=== PATIENT | female | born 1970 | race Caucasian/White ===

== ENCOUNTER 2018-03-28 15:56 | Outpatient (REF) | payer BC, SELFPAY ==
[2018-03-28 21:42] LABS: Cholesterol 269 mg/dL (50-200); HDL Cholesterol 66 mg/dL (40-60); LDL CHOLESTEROL 181 mg/dL (<100); Triglyceride 141 mg/dL (30-150)
== END 2018-03-28 16:16 ==
LOC: NCHCN 15:56
PROVIDERS: Referring Provider Registered Nurse; Visit Provider Registered Nurse
DX: Z00.00 Encounter for general adult medical examination without abnormal findings (principal); Z13.220 Encounter for screening for lipoid disorders
CPT/HCPCS: 80061; 83721

== ENCOUNTER 2020-05-03 18:12 | Outpatient (REF) | payer BC, SELFPAY ==
[2020-05-06 02:42] LABS: SARS-CoV-2 RNA Undetected (Undetected); SARS-CoV-2 Specimen Source Nasal
== END 2020-05-03 18:32 ==
LOC: NCHCN 18:12
PROVIDERS: PCP Nurse Practitioner Community Health; Visit Provider Nurse Practitioner Community Health
DX: Z20.828 Contact with and (suspected) exposure to other viral communicable diseases (principal)
CPT/HCPCS: U0003

== ENCOUNTER 2020-12-23 14:13 | Emergency (ER) | payer BC, SELFPAY ==
[2020-12-23 14:22] VITALS: BP 126/65; PULSE 74; RESP 16; TEMP 36.8; O2SAT 98
--- NOTE | 2020-12-23 14:30 | DI.RAD_ITS ---
Exam(s) XR THUMB RT EXAM: XR THUMB RT CLINICAL HISTORY: swelling at mcp. TECHNIQUE: 2D digital imaging was performed. COMPARISON: No exams were available for comparison FINDINGS: BONES: No acute fracture is present. No bony destructive lesion is seen. JOINTS: No dislocation present. SOFT TISSUE: Normal. IMPRESSION: No evidence of acute fracture, dislocation, or subluxation. DATA REPOSITORY: RADIATION DOSE DELIVERED:
--- NOTE | 2020-12-23 15:05 | ED.GENADUL_ITS ---
Discharge Plan Disposition Patient Disposition: HOME Condition: Good Discharge Details Clinical Impression: Alma's thumb of right hand Primary Care Provider: Ernestina Luna ED Provider: Jeanette Thakkar Home Meds and New Rx's Prescriptions: No Action duloxetine 20 mg Capsule,Delayed Release(Dr/Ec) 20 mg PO DAILY RF: 0 Discharge Instructions Additional Instructions: Take ibuprofen and Tylenol for pain control Use your splint Follow-up with orthopedics to set up follow-up appointment Return earlier should you have new or worsening complaints Referrals: Rene Barkley MD [ [facility] STAFF PHYSICIAN] - Discharge Data Discharge Date/Time-TO BE ENTERED AT DEPARTURE: 12/23/20 15:21 Medical Decision Making X-ray does not show acute pathology however patient's exam is concerning for gamekeeper's thumb She will be placed in a thumb spica splint and referred to orthopedic She will take ibuprofen and Tylenol for pain control and return earlier should she have new or worsening pain She is discharged home neurovascularly intact with return precautions discussed Differential Diagnosis Differential Diagnosis: Fracture, gamekeeper's thumb, laceration, hematoma HPI General Mode of arrival: ambulatory . Date/Time Provider Initiated Documentation: 12/23/20 14:36 . Limitations to Documentation: no limitations . Information obtained by: patient . HPI Narrative: This 50-year-old female presents with some injury that occurred just prior to arrival. 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 She denies any additional injuries. She had initial instantaneous swelling and pain. She now has weakness. Otherwise healthy and denies chance of . Denies sensation change. Related Data Home Medications Medication Instructions Recorded Confirmed duloxetine 20 mg PO DAILY 12/23/20 12/23/20 Allergies Allergy/AdvReac Type Severity Reaction Status Date / Time Penicillins Allergy Severe Anaphylaxis Unverified 12/23/20 14:25 General Stated Complaint: Orthopedic BRIE: 4 Review of Systems Narrative: Review of systems obtained x3 aside from where indicated in HPI PFSH Social History Smoking/Tobacco Use Status: Never Smoking risk assessment performed?: Yes Drug use: Never Do you feel safe at home: Yes Do you feel safe in your relationship?: Yes Exam Const General: no acute distress Orientation: alert Extrem Other: Right thumb with swelling at MCP joint, decreased flexion, brisk capillary refill distally, no tenderness to wrist or PIP joint appreciated, no crepitus Course Vital Signs Vital signs: Vital Signs Temperature 36.8 C 12/23/20 14:22 Pulse 74 12/23/20 14:22 Respiratory Rate 16 12/23/20 14:22 Blood Pressure 126/65 12/23/20 14:22 Pulse Oximetry 98 12/23/20 14:22 Temperature 36.8 C 12/23/20 14:22 Temperature Source Temporal Artery Scan 12/23/20 14:22 Pulse 74 12/23/20 14:22 Respiratory Rate 16 12/23/20 14:22 Respiratory Effort 12/23/20 14:27 Blood Pressure 126/65 12/23/20 14:22 Blood Pressure Position Sitting 12/23/20 14:22 Pulse Oximetry 98 12/23/20 14:22 Oxygen Delivery Method Room Air 12/23/20 14:22 Oxygen Flow Rate 0 12/23/20 14:22 Pain Level 3 12/23/20 14:22
== END 2020-12-23 15:21 | disposition home or self-care (01) ==
PROVIDERS: Emergency Provider Physician Assistant; PCP Nurse Practitioner Community Health
DX: S63.641A Sprain of metacarpophalangeal joint of right thumb, initial encounter (principal); X50.1XXA Overexertion from prolonged static or awkward postures, initial encounter
CPT/HCPCS: 29125; 99283; 73140

== ENCOUNTER 2021-04-08 03:59 | Outpatient (CLI) | payer BC, SELFPAY ==
--- NOTE | 2021-04-08 09:50 | DI.MRI_ITS ---
Exam(s) MR UPPER EXTREMITY RT WO EXAM: MR UPPER EXTREMITY RT WO CLINICAL HISTORY: pain,injury,GAMEKEEPERS THUMB,S69.91XA,S53.31XA. TECHNIQUE: Multiplanar multisequence MRI was performed. COMPARISON: None. FINDINGS: BONES: There is no fracture or contusion pattern. JOINTS: There is a small effusion in the 1st MCP joint. TENDONS: Flexors: Unremarkable. Extensors: Unremarkable. MUSCLES: Unremarkable. SOFT TISSUES: There is mild edema seen in the soft tissues around the metacarpophalangeal joint. LIGAMENTS: There is hyperintense signal seen in the region of the ulnar collateral ligament. There d oes appear to be discontinuity of the ligament consistent with a tear. OTHER: IMPRESSION: Findings suspicious for tear of the ulnar collateral ligament. Edema seen in the soft tissues around the 1st MCP joint. Small joint effusion at the MCP joint. DATA REPOSITORY:
== END 2021-04-08 04:19 ==
PROVIDERS: PCP Nurse Practitioner Community Health; Visit Provider Student in an Organized Health Care Education/Training Program
DX: S53.31XA Traumatic rupture of right ulnar collateral ligament, initial encounter (principal); S69.91XA Unspecified injury of right wrist, hand and finger(s), initial encounter; M25.441 Effusion, right hand; M79.89 Other specified soft tissue disorders
CPT/HCPCS: 73218

== ENCOUNTER 2021-04-25 17:32 | Emergency (ER) | payer BC, SELFPAY ==
[2021-04-25 17:52] VITALS: BP 155/104; PULSE 87; RESP 16; TEMP 36.8; O2SAT 94
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
[2021-04-25 19:34] VITALS: BP 146/72; PULSE 72; TEMP 36.6; O2SAT 99
--- NOTE | 2021-04-25 19:45 | DI.RAD_ITS ---
Exam(s) XR LUMBAR SPINE COMPLETE EXAM: XR LUMBAR SPINE COMPLETE CLINICAL HISTORY: midline low back pain, sudden flexion of back/legs. TECHNIQUE: 2D digital imaging was performed. COMPARISON: No exams were available for comparison FINDINGS: No evidence of fracture nor listhesis. No pars defects. There is disc space narrowing noted at T11- T12 level and anterior osseous lipping evident at this level. No other significant disc space narrow ing. Facet joints unremarkable. Sacroiliac joints appear unremarkable. IMPRESSION: No significant radiographic findings in the lumbosacral spine. Disc space narrowing at T11-T12 incidentally noted. DATA REPOSITORY: RADIATION DOSE DELIVERED:
[2021-04-25] MEDS: predniSONE 20 MG TAB 60 MG PO (20:04)
[2021-04-25] MEDS: Ketorolac 30 MG/ML VIAL IVP (20:04)
--- NOTE | 2021-04-25 21:10 | DI.VRAD_ITS ---
PROCEDURE INFORMATION: Exam: XR Lumbosacral Spine Exam date and time: 04/25/2021 7:57 PM Age: 50 years old Clinical indication: Patient HX: Midline low back pain, sudden flexion of back/legs TECHNIQUE: Imaging protocol: XR of the lumbosacral spine. Views: 4 or 5 views. COMPARISON: No relevant prior studies available. FINDINGS: Bones/joints: Normal. No acute fracture. Normal alignment. Soft tissues: Unremarkable. IMPRESSION: No acute findings. Dictated and Authenticated by: Bassam Strickland MD. Ordering:AGUSTIN Paige MD
[2021-04-25 21:27] VITALS: BP 133/74; PULSE 67; RESP 18; O2SAT 100
[2021-04-25] MEDS: diazePAM 5 MG TAB PO (21:27)
== END 2021-04-25 21:32 | disposition home or self-care (01) ==
PROVIDERS: Emergency Provider Physician Assistant; PCP Nurse Practitioner Community Health
DX: S39.012A Strain of muscle, fascia and tendon of lower back, initial encounter (principal); X50.9XXA Other and unspecified overexertion or strenuous movements or postures, initial encounter
CPT/HCPCS: 96372; 99284; 72110; J1885; J7512

== ENCOUNTER 2021-07-22 19:18 | Outpatient (REF) | payer BC, SELFPAY ==
[2021-07-24 20:11] LABS: COVID-19 RT-PCR UVMMC Result Positive (Negative)
== END 2021-07-22 19:19 | disposition home or self-care (01) ==
LOC: LBN 19:18
PROVIDERS: PCP Nurse Practitioner Community Health; Visit Provider Physician Assistant Medical
DX: Z20.822 Contact with and (suspected) exposure to COVID-19 (principal); R05.8 Other specified cough
CPT/HCPCS: U0003

== ENCOUNTER 2021-07-27 01:38 | Outpatient (CLI) | payer BC, SELFPAY ==
[2021-07-27] MEDS: Normal Saline Flush 10 ML SYR IVP (08:45)
[2021-07-27] MEDS: Normal Saline 250 ML 30 ML IV (08:45)
[2021-07-27 08:55] VITALS: BP 101/72; PULSE 79; RESP 20; TEMP 36.7; O2SAT 98
[2021-07-27 09:35] VITALS: BP 108/74; PULSE 75; RESP 18; TEMP 36.4; O2SAT 98
[2021-07-27 10:33] VITALS: BP 92/55; RESP 18; TEMP 36.4; O2SAT 99
== END 2021-07-27 01:39 | disposition home or self-care (01) ==
LOC: INF 01:38
PROVIDERS: PCP Nurse Practitioner Community Health; Visit Provider Family Medicine
DX: U07.1 COVID-19 (principal)
CPT/HCPCS: 96365; Q0047

== ENCOUNTER 2022-04-10 15:12 | Outpatient (REF) | payer BC, SELFPAY ==
[2022-04-12 12:07] LABS: COVID-19 RT-PCR UVMMC Result Negative (Negative)
== END 2022-04-10 15:13 | disposition home or self-care (01) ==
LOC: LBN 15:12
PROVIDERS: PCP Nurse Practitioner Community Health; Visit Provider Nurse Practitioner Family
DX: Z20.822 Contact with and (suspected) exposure to COVID-19 (principal); J06.9 Acute upper respiratory infection, unspecified
CPT/HCPCS: U0003

== ENCOUNTER 2022-04-27 15:18 | Outpatient (REF) | payer BC, SELFPAY ==
[2022-04-27 21:05] LABS: Hemoglobin A1C 5.6 % (<5.7)
[2022-04-27 21:11] LABS: Calculated LDL 152 mg/dL (<100); Cholesterol 241 mg/dL (<200); HDL Cholesterol 68 mg/dL (40-60); TSH (W/Ref FT4) 2.49 uIU/mL (0.36-3.74); Triglyceride 107 mg/dL (<150)
[2022-04-27 21:25] LABS: Vitamin D 25 Total 20.1 ng/mL (30-100)
[2022-05-01 11:10] LABS: Hepatitis C Ab w Rflx HCV PCR Negative (Negative)
[2022-05-01 11:27] LABS: HIV-1/2 Ag & Ab Screen Negative (Negative)
== END 2022-04-27 15:19 | disposition home or self-care (01) ==
LOC: NCHCN 15:18
PROVIDERS: PCP Nurse Practitioner Community Health; Visit Provider Nurse Practitioner Family
DX: R53.83 Other fatigue (principal); Z11.4 Encounter for screening for human immunodeficiency virus [HIV]; Z11.59 Encounter for screening for other viral diseases
CPT/HCPCS: 80061; 82306; 86803; 87389; 83036; 84443

== ENCOUNTER 2022-05-03 09:15 | Emergency (ER) | payer BC, SELFPAY ==
[2022-05-03] VITALS (14 sets, daily range): BP systolic 100–112; BP diastolic 51–63; PULSE 60–86; RESP 7–20; TEMP 36.3; O2SAT 95–100
--- NOTE | 2022-05-03 09:15 | RT.EKG_ITS ---
APPROVED REPORT Exam: Resting ECG Reason for Exam: sob,chest tightness Patient Location: E HR:72 bpm ECG Measurements Heart Rate 72 AXIS UT 193 P 54 QRSd 97 QRS -17 QT 404 T 31 QTc 442 Conclusion Sinus rhythm...normal P axis, V-rate 60- 99
--- NOTE | 2022-05-03 09:30 | DI.CT_ITS ---
Exam(s) CT CHEST PE CTA EXAM: CT CHEST PE CTA CLINICAL HISTORY: sob, hx of vasculitis. TECHNIQUE: Imaging Protocol: CT angiography of the chest was performed using pulmonary embolus josué col. Multi planar reconstructions were performed. CONTRAST MATERIAL: Intravenous: Omnipaque 350 Contrast volume: 100 cc COMPARISON: No exams were available for comparison FINDINGS: CHEST: PULMONARY ARTERIES: There are no intraluminal filling defects to suggest acute pulmonary emboli. LUNGS: There are no infiltrates nor evidence of pulmonary infarction.. There are no pleural effusions . However, there are a few small noncalcified nodules in the right lung, measuring 6 and 7 millimete rs. Another mother's 4 millimeters. These are in the right middle lobe. There do not appear to be nodules in the right lower lobe nor in the left lung. No pleural effusions. No significant focal fi ndings in the trachea and mainstem bronchi. MEDIASTINUM: There is no hilar nor mediastinal adenopathy. CARDIAC: Heart size is upper normal. There is no pericardial effusion.Caliber of the thoracic aorta is within normal limits. No dissection. There is no significant shift of the interventricular septum . PARTIALLY VISUALIZED UPPERMOST ABDOMEN: Previous cholecystectomy. OSSEOUS: No significant osseous lesions.. IMPRESSION: 1. No evidence of acute pulmonary emboli. No evidence of pulmonary infarction.No pleural effusions. 2. Three small sub cm nodules noted in the right lung as described above. Six-month follow-up CT sca n recommended. No focal left lung findings evident. 3. No intrathoracic adenopathy evident. RADIATION DOSE DELIVERED: 414.93mGy.cm Total DLP DATA REPOSITORY: All CT scans at this facility are submitted to the National Radiology Data Registry (NRDR) Dose Index Registry (DIR) with the [employer] ([employer]). RADIATION OPTIMIZATION: All CT scans at this facility use at least one of these dose optimization te chniques: automated exposure control; mA and/or kV adjustment per patient size (includes targeted exa ms where dose is matched to clinical indication); or iterative reconstruction.
[2022-05-03 09:58] LABS: Source Nasal/Nares
[2022-05-03 10:00] LABS: Abs Immature Grans 0.02 10^3/uL (0.0-0.06); Absolute Basophil Count 0.04 10^3/uL (0.0-0.2); Absolute Eosinophil Count 0.45 10^3/uL (0.0-0.7); Absolute Monocyte Count 0.54 10^3/uL (0.1-0.8); Absolute Neutrophil Count 4.97 10^3/uL (1.2-6.7); Basophils % 0.5; Eosinophils % 5.6; HCT 42.5 % (36.0-46.0); HGB 14.1 g/dL (11.2-15.7); Immature Grans % 0.2; Lymphocytes % 24.9; MCH 29.1 pg (27.0-33.0); MCHC 33.2 % (32.0-36.0); MCV 88 fL (80-95); MPV 10.6 fL (8.0-11.0); Monocytes % 6.7; Neutrophils % 62.1; Platelet Count 203 10^3/uL (130-400); RBC 4.84 10^6/uL (3.93-5.22); RDW 13.1 % (11.7-14.6); RDW-SD 42.2 fL; WBC 8.02 10^3/uL (4.4-10.8)
--- NOTE | 2022-05-03 10:01 | ED.GENADUL_ITS ---
Discharge Plan Disposition Patient Disposition: HOME Condition: Stable Discharge Details Clinical Impression: COVID, Pulmonary nodule Primary Care Provider: Ernestina Luna ED Provider: Jose Li Home Meds and New Rx's Prescriptions: Continued Claritin-D 12 Hour 5-120 mg tablet extended release 12 hr 1 tab PO Q12H duloxetine 20 mg Capsule,Delayed Release(Dr/Ec) 20 mg PO DAILY methocarbamol 500 mg tablet 500 mg PO Q6H PRN (Reason: muscle spasm) Qty: 14 0RF prednisone 20 mg tablet See Rx Instructions .ROUTE .COMPLEX Qty: 18 0RF Rx Instructions: Take 3 tabs daily for 3 days, then 2 tabs daily for 3 days, then 1 tab daily for 3 days. Discharge Instructions Instructions: COVID-19 (Coronavirus Disease 2019) (ED), Pulmonary Nodules (ED) Additional Instructions: Paxlovid as directed. Rest, [id number] medications as directed for symptomatic control. Please watch for new or worsening symptoms and return to the ER for any concerns. Please contact both your PCP and rheumatology team to discuss your ER visit, ongoing symptoms, and need for outpatient reevaluation. CT imaging did reveal incidental pulmonary nodules, radiology recommends 6-month outpatient CT follow-up for further evaluation. Medical Decision Making 51-year-old female with past medical history of vasculitis, fibromyalgia, reporting chest tightness, shortness of breath over the past 4 weeks, initially diagnosed with a viral syndrome, tested negative for COVID then. Reports symptoms have worsened over the past several days. No fever, chest pain, cough, pain or swelling her legs. Clinically she appears well, nontoxic. We will initiate a cardiac work-up including a 1 troponin and EKG given the duration of her symptoms, and will obtain CTA of the chest at the request of rheumatology at [facility]. Initial laboratory values are unremarkable. No evidence of leukocytosis, D- dimer unremarkable, normal electrolytes, creatinine 1.0 with a GFR of 68.63 magnesium 1.9 troponin less than 50 BNP 35 COVID-positive, certainly explains her symptoms. CTA reveals no PE. Incidental nodules O2 sat 99% on room air. I have reached out to rheumatology at [facility] at 1232, Dr. Garcia, we reviewed the case, CT imaging, medication list, etc. She recommends initiating Paxlovid. Discussed work-up and treatment with patient. She is agreeable to initiating Paxlovid, first dose given here Standard discharge and return precautions were provided. Patient understands, is agreeable to this plan, and has no additional questions or concerns upon discharge. This documentation was generated using Game[employer] system, please disregard any oddities of phrase or misspellings. Medical Records Medical records reviewed: Yes I reviewed the patient's medical records. Imaging Data Radiologic Study: Attestation: I personally reviewed and interpreted this imaging study as follows: Imaging: CT Scan Radiologist's impression: Exam(s) CT CHEST PE CTA EXAM: CT CHEST PE CTA CLINICAL HISTORY: sob, hx of vasculitis. TECHNIQUE: Imaging Protocol: CT angiography of the chest was performed using pulmonary embolus protocol. Multi planar reconstructions were performed. CONTRAST MATERIAL: Intravenous: Omnipaque 350 Contrast volume: 100 cc COMPARISON: No exams were available for comparison FINDINGS: CHEST: PULMONARY ARTERIES: There are no intraluminal filling defects to suggest acute pulmonary emboli. LUNGS: There are no infiltrates nor evidence of pulmonary infarction.. There are no pleural effusions. However, there are a few small noncalcified nodules in the right lung, measuring 6 and 7 millimeters. Another mother's 4 millimeters. These are in the right middle lobe. There do not appear to be nodules in the right lower lobe nor in the left lung. No pleural effusions. No significant focal findings in the trachea and mainstem bronchi. MEDIASTINUM: There is no hilar nor mediastinal adenopathy. CARDIAC: Heart size is upper normal. There is no pericardial effusion.Caliber of the thoracic aorta is within normal limits. No dissection. There is no significant shift of the interventricular septum. PARTIALLY VISUALIZED UPPERMOST ABDOMEN: Previous cholecystectomy. OSSEOUS: No significant osseous lesions.. IMPRESSION: 1. No evidence of acute pulmonary emboli. No evidence of pulmonary infarction.No pleural effusions. 2. Three small sub cm nodules noted in the right lung as described above. Six- month follow-up CT scan recommended. No focal left lung findings evident. 3. No intrathoracic adenopathy evident. Lab Data Lab results reviewed: Yes I reviewed the patient's lab results. Labs: Laboratory Tests Range/Units 05/03/22 05/03/22 05/03/22 09:50 09:50 09:50 WBC (4.4-10.8) 10^3/uL 8.02 RBC (3.93-5.22) 10^6/uL 4.84 Hgb (11.2-15.7) g/dL 14.1 Hct (36.0-46.0) % 42.5 MCV (80-95) fL 88 MCH (27.0-33.0) pg 29.1 MCHC (32.0-36.0) % 33.2 RDW (11.7-14.6) % 13.1 Plt Count (130-400) 10^3/uL 203 MPV (8.0-11.0) fL 10.6 Immature Gran % 0.2 Neutrophils % 62.1 Lymphocytes % 24.9 Monocytes % 6.7 Eosinophils % 5.6 Basophils % 0.5 Nucleated RBC % (0.0-0.3) % 0.0 Absolute Neutrophils (1.2-6.7) 10^3/uL 4.97 Absolute Lymphocytes (1.2-3.4) 10^3/uL 2.00 Absolute Monocytes (0.1-0.8) 10^3/uL 0.54 Absolute Eosinophils (0.0-0.7) 10^3/uL 0.45 Absolute Basophils (0.0-0.2) 10^3/uL 0.04 D-Dimer (<500) ng/mlFEU 459 Sodium (136-145) mmol/L 139 Potassium (3.5-5.1) mmol/L 4.0 Chloride (98-107) mmol/L 105 Carbon Dioxide (21.0-32.0) mmol/L 26.9 Anion Gap (3-11) mmol/L 7.1 BUN (7-18) mg/dL 12 Creatinine (0.55-1.02) mg/dL 1.0 Est GFR (CKD-EPI 2020) (mL/min/1.73m2) 68.63 Glucose (74-106) mg/dL 97 Calcium (8.5-10.1) mg/dL 9.1 Magnesium (1.8-2.4) mg/dL 1.9 Total Bilirubin (0.2-1.0) mg/dL 0.6 AST (15-37) U/L 10 L ALT (14-59) U/L 18 Alkaline Phosphatase (46-116) U/L 93 Troponin I (<or=60) ng/L < 50 NT-Pro-B Natriuret Pep (<300) pg/mL 35 Total Protein (6.4-8.2) g/dL 7.9 Albumin (3.4-5.0) g/dL 3.6 COVID-19 Source SARS-CoV-2 (PCR) (Negative) Range/Units 05/03/22 09:52 WBC (4.4-10.8) 10^3/uL RBC (3.93-5.22) 10^6/uL Hgb (11.2-15.7) g/dL Hct (36.0-46.0) % MCV (80-95) fL MCH (27.0-33.0) pg MCHC (32.0-36.0) % RDW (11.7-14.6) % Plt Count (130-400) 10^3/uL MPV (8.0-11.0) fL Immature Gran % Neutrophils % Lymphocytes % Monocytes % Eosinophils % Basophils % Nucleated RBC % (0.0-0.3) % Absolute Neutrophils (1.2-6.7) 10^3/uL Absolute Lymphocytes (1.2-3.4) 10^3/uL Absolute Monocytes (0.1-0.8) 10^3/uL Absolute Eosinophils (0.0-0.7) 10^3/uL Absolute Basophils (0.0-0.2) 10^3/uL D-Dimer (<500) ng/mlFEU Sodium (136-145) mmol/L Potassium (3.5-5.1) mmol/L Chloride (98-107) mmol/L Carbon Dioxide (21.0-32.0) mmol/L Anion Gap (3-11) mmol/L BUN (7-18) mg/dL Creatinine (0.55-1.02) mg/dL Est GFR (CKD-EPI 2020) (mL/min/1.73m2) Glucose (74-106) mg/dL Calcium (8.5-10.1) mg/dL Magnesium (1.8-2.4) mg/dL Total Bilirubin (0.2-1.0) mg/dL AST (15-37) U/L ALT (14-59) U/L Alkaline Phosphatase (46-116) U/L Troponin I (<or=60) ng/L NT-Pro-B Natriuret Pep (<300) pg/mL Total Protein (6.4-8.2) g/dL Albumin (3.4-5.0) g/dL COVID-19 Source Nasal/Nares SARS-CoV-2 (PCR) (Negative) POSITIVE A* ECG Data Attestation: I personally reviewed and interpreted this ECG (s) as follows: Interpretation: Sinus rhythm, ventricular rate of 72, no STEMI. HPI General Mode of arrival: ambulatory . Date/Time Provider Initiated Documentation: 05/03/22 09:16 . Limitations to Documentation: no limitations . Information obtained by: patient . 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 She denies recent illness or trauma, fever, chest pain, cough, radiation of any pain into her back, down her arms, into her neck, into her abdomen, nausea, vomiting, pain or swelling her lower extremities. Spoke with her rheumatology team today and sent to the ER for CTA rule out PE. Patient reports she has been taking her medications as directed. Related Data Home Medications Medication Instructions Recorded Confirmed duloxetine 20 mg capsule,delayed 20 mg PO DAILY 12/23/20 05/03/22 release loratadine 5 mg-pseudoephedrine ER 1 tab PO Q12H 02/03/21 05/03/22 120 mg tablet,extended release,12hr (Claritin-D 12 Hour) methocarbamol 500 mg tablet 500 mg PO Q6H PRN muscle spasm #14 04/25/21 05/03/22 tabs prednisone 20 mg tablet See Rx Instructions .Route 04/25/21 05/03/22 .COMPLEX #18 tabs Previous Rx's Medication Instructions Recorded methocarbamol 500 mg tablet 500 mg PO Q6H PRN muscle spasm #14 04/25/21 tabs prednisone 20 mg tablet See Rx Instructions .Route 04/25/21 .COMPLEX #18 tabs Allergies Allergy/AdvReac Type Severity Reaction Status Date / Time Penicillins Allergy Severe Anaphylaxis Unverified 05/03/22 09:32 General Stated Complaint: SOB BRIE: 3 Review of Systems Constitutional Constitutional: Denies fatigue, Denies fever(s), Denies headache(s) and Denies weakness ENT Ears, Nose, Mouth, and Throat: Denies headache(s) and Denies neck pain Cardiovascular Cardiovascular: Denies chest pain and Reports dyspnea Respiratory Respiratory: Denies cough and Reports dyspnea Gastrointestinal Gastrointestinal: Denies abdominal pain, Denies nausea and Denies vomiting Musculoskeletal Musculoskeletal: Denies back pain and Denies neck pain Integumentary/Breasts Skin/Breast: Denies rash Neurologic Neurologic: Denies headache(s) and Denies weakness Endocrine Endocrine: Denies fatigue Hematologic/Lymphatic Hematologic/Lymphatic: Denies easy bleeding and Denies easy bruising PFSH All Active Problems (Updated 05/03/22 @ 13:05 by VALARIE Quijano) COVID (Acute) Pulmonary nodule (Acute) Acute lumbar myofascial strain (Acute) Injury of right thumb (Acute) Questionable RCL injury Gamekeeper's thumb of right hand (Acute) Surgical History History of hysterectomy Social History Smoking/Tobacco Use Status: Never Smoking risk assessment performed?: Yes Alcohol Intake: never Drug use: Never Substance use type: does not use Current gender identity: female Do you feel safe at home: Yes Do you feel safe in your relationship?: Yes Exam Const General: cooperative, healthy appearing, comfortable and no acute distress Orientation: alert and awake HENMT Head: normal to inspection, normocephalic and atraumatic Mouth: moist mucous membranes Eyes General: appearance normal, both eyes and all related structures Conjunctivae: conjunctivae normal Neck Neck: normal visual inspection, full ROM, no meningeal signs, trachea midline and supple Resp Effort & Inspection: normal respiratory effort and able to speak in complete sentences Auscultation: clear to auscultation bilaterally Cardio Rate: regular rate Rhythm: regular rhythm GI Palpation: soft, not firm, no guarding, no pulsatile masses and nontender Back/Spine/Pelvis Back: No back tenderness Skin General skin exam: no rashes or lesions noted Neuro General: patient alert, patient awake, moves all extremities and no focal motor deficits Cognition: normal cognition Speech: speech normal Gait: normal gait Sensory Exam: no sensory deficits noted Extrem General: normal to inspection, full ROM, capillary refill normal, no pedal edema and no calf tenderness Psych Appearance: grossly normal Mental Status: mental status grossly normal Course Vital Signs Vital signs: Vital Signs Temperature 36.3 C L 05/03/22 09:20 Pulse 86 05/03/22 09:20 Respiratory Rate 20 05/03/22 09:20 Blood Pressure 112/57 L 05/03/22 09:20 Pulse Oximetry 99 05/03/22 09:20 Temperature 36.3 C L 05/03/22 09:20 Temperature Source Temporal Artery Scan 05/03/22 09:20 Pulse 86 05/03/22 09:20 Respiratory Rate 20 05/03/22 09:28 Respiratory Effort Labored 05/03/22 09:28 Respiratory Depth Normal 05/03/22 09:28 Respiratory Pattern Normal 05/03/22 09:28 Blood Pressure 112/57 L 05/03/22 09:20 Blood Pressure Position Sitting 05/03/22 09:20 Pulse Oximetry 99 05/03/22 09:20 Oxygen Delivery Method Room Air 05/03/22 09:20 Oxygen Flow Rate 0 05/03/22 09:20 Pain Level 6 05/03/22 09:20 Lab/Test Results Lab/Test Results: Laboratory Tests Range/Units 05/03/22 09:52 COVID-19 Source Nasal/Nares
[2022-05-03 10:31] LABS: ALT 18 U/L (14-59); AST 10 U/L (15-37); Albumin 3.6 g/dL (3.4-5.0); Alkaline Phosphatase 93 U/L (46-116); Anion Gap 7.1 mmol/L (3-11); BUN 12 mg/dL (7-18); Bilirubin, Total 0.6 mg/dL (0.2-1.0); CO2 26.9 mmol/L (21.0-32.0); Calcium 9.1 mg/dL (8.5-10.1); Chloride 105 mmol/L (98-107); Estimated GFR 68.63 (mL/min/1.73m2); Glucose 97 mg/dL (74-106); Magnesium 1.9 mg/dL (1.8-2.4); NT-proBNP 35 pg/mL (<300); Sodium 139 mmol/L (136-145); Total Protein 7.9 g/dL (6.4-8.2); Troponin I < 50 ng/L (<or=60)
[2022-05-03 10:33] LABS: D-Dimer 459 ng/mlFEU (<500)
[2022-05-03 10:35] LABS: COVID-19 PCR POSITIVE (Negative)
[2022-05-03] MEDS: Normal Saline Flush 10 ML SYR IVP (10:58)
[2022-05-03] MEDS: Omnipaque 350 MG/ML 500 ML BTL-Imaging package IJ (10:59)
== END 2022-05-03 13:20 | disposition home or self-care (01) ==
PROVIDERS: Emergency Provider Physician Assistant; PCP Nurse Practitioner Community Health
DX: U07.1 COVID-19 (principal); R91.1 Solitary pulmonary nodule
CPT/HCPCS: 36415; 71275; 80053; 87635; 93005; 99285; 83735; 83880; 84484; 85025; 85379; 93010; 99284

== ENCOUNTER 2022-07-24 16:11 | Outpatient (REF) | payer BC, SELFPAY ==
[2022-07-24 20:59] LABS: Anion Gap 4.3 mmol/L (3-11); BUN 14 mg/dL (7-18); CO2 30.7 mmol/L (21.0-32.0); CREATININE 0.9 mg/dL (0.55-1.02); Calcium 9.3 mg/dL (8.5-10.1); Chloride 104 mmol/L (98-107); Estimated GFR 77.88 (mL/min/1.73m2); Glucose 95 mg/dL (74-106); Potassium 4.2 mmol/L (3.5-5.1); Sodium 139 mmol/L (136-145)
[2022-07-24 21:44] LABS: Vitamin D 25 Total 38.7 ng/mL (30-100)
== END 2022-07-24 16:12 | disposition home or self-care (01) ==
LOC: NCHCN 16:11
PROVIDERS: PCP Nurse Practitioner Community Health; Visit Provider Nurse Practitioner Family
DX: E66.01 Morbid (severe) obesity due to excess calories (principal); E55.9 Vitamin D deficiency, unspecified
CPT/HCPCS: 80048; 82306

== ENCOUNTER → 2023-04-13 02:21 | Outpatient (CLI) | payer BC, SELFPAY ==
--- NOTE | 2023-04-13 15:55 | DI.RAD_ITS ---
Exam(s) XR HIP RT COMPLETE AP PELVIS EXAM: XR HIP RT COMPLETE AP PELVIS CLINICAL HISTORY: RT HIP PAIN, M25.551. TECHNIQUE: 2D digital imaging was performed of the right hip. Two images were obtained. AP pelvis a nd lateral right hip views were obtained. COMPARISON: No exams were available for comparison FINDINGS: BONES: No acute fracture is present. No bony destructive lesion is seen. JOINTS: No dislocation present. There is mild narrowing of the joint space of the right hip. The lef t hip is well maintained as are the sacroiliac joints and symphysis pubis. SOFT TISSUE: Normal. IMPRESSION: Mild right hip joint space narrowing. DATA REPOSITORY: RADIATION DOSE DELIVERED:
== END ==
PROVIDERS: Visit Provider Family Medicine
DX: M16.11 Unilateral primary osteoarthritis, right hip (principal)
CPT/HCPCS: 73502

== ENCOUNTER 2024-04-28 08:32 | Emergency (ER) | payer BC, SELFPAY ==
[2024-04-28] VITALS (20 sets, daily range): BP systolic 124–162; BP diastolic 48–91; PULSE 63–77; RESP 10–31; TEMP 36.1; O2SAT 91–100
--- NOTE | 2024-04-28 08:30 | RT.EKG_ITS ---
APPROVED REPORT Exam: Resting ECG Reason for Exam: Chest Pain Patient Location: E HR:75 bpm ECG Measurements Heart Rate 75 AXIS ME 209 P 66 QRSd 95 QRS 3 QT 386 T 63 QTc 433 Conclusion Sinus rhythm 75 normal axis no stemi
[2024-04-28] MEDS: Aspirin 81 MG CHEW 324 MG CH (08:54)
[2024-04-28] MEDS: ALPRAZolam 0.5 MG TAB PO (08:54)
[2024-04-28] MEDS: Normal Saline Flush 10 ML SYR IVP (08:54)
--- NOTE | 2024-04-28 09:08 | ED.GENADUL_ITS ---
Discharge Plan Disposition Patient Disposition: Home Condition: Stable Discharge Details Clinical Impression: Chest pain Primary Care Provider: Unknown,Unknown ED Provider: Lore Dumont Home Meds and New Rx's Prescriptions: No Action Claritin-D 12 Hour 5-120 mg tablet extended release 12 hr 1 tab PO Q12H duloxetine 20 mg Capsule,Delayed Release(Dr/Ec) 20 mg PO DAILY methocarbamol 500 mg tablet 500 mg PO Q6H PRN (Reason: muscle spasm) Qty: 14 0RF prednisone 20 mg tablet See Rx Instructions .ROUTE .COMPLEX Qty: 18 0RF Rx Instructions: Take 3 tabs daily for 3 days, then 2 tabs daily for 3 days, then 1 tab daily for 3 days. duloxetine 30 mg capsule,delayed release(DR/EC) 30 mg PO DAILY Patient Comments: TAKE ONE CAPSULE BY MOUTH EVERY DAY Discharge Instructions Instructions: Chest pain Additional Instructions: LAB WORK IS REASSURING TODAY PLEASE FOLLOW UP WITH YOUR PCP WITH ANY ONGOING SYMPTOMS HPI General Date/Time Provider Initiated Documentation: 04/28/24 08:47 . Limitations to Documentation: no limitations . Information obtained by: patient . HPI Narrative: 53-year-old female with out significant past medical history presents for evaluation of chest pain. She reports that has been ongoing intermittently for the last week. No exacerbating or relieving factors. She reports that the pain is localized over the left side of her chest and radiates up into her left shoulder and left neck. She reports that both arms feel heavy when she is feeling this pain. It is not associated with shortness of breath, nausea or sweating. She states that home is very stressful right now as she just asked her for divorce. She has never had pain like this before. Denies any cough, fever or chills Related Data Home Medications ?Medication ?Instructions ?Recorded ?Confirmed duloxetine 20 mg capsule,delayed 20 mg PO DAILY 12/23/20 04/28/24 release loratadine 5 mg-pseudoephedrine ER 1 tab PO Q12H 02/03/21 04/28/24 120 mg tablet,extended release,12hr (Claritin-D 12 Hour) methocarbamol 500 mg tablet 500 mg PO Q6H PRN muscle spasm #14 04/25/21 04/28/24 tabs prednisone 20 mg tablet See Rx Instructions .Route 04/25/21 04/28/24 .COMPLEX #18 tabs duloxetine 30 mg capsule,delayed 30 mg PO DAILY 04/28/24 04/28/24 release Previous Rx's ?Medication ?Instructions ?Recorded methocarbamol 500 mg tablet 500 mg PO Q6H PRN muscle spasm #14 04/25/21 tabs prednisone 20 mg tablet See Rx Instructions .Route 04/25/21 .COMPLEX #18 tabs Allergies Allergy/AdvReac Type Severity Reaction Status Date / Time Penicillins Allergy Severe Anaphylaxis Unverified 04/28/24 08:45 General Stated Complaint: Chest Pain BRIE: 3 Exam Narrative Exam Narrative: Review of Systems: All systems reviewed & are unremarkable except as noted in HPI and below Well-developed, crying NCAT RRR, no murmur Unlabored respiratory effort, CTAB Nondistended abdomen , soft non tender Extremities w/o edema no focal neurologic deficits tearful, anxious, no si / hi Course Vital Signs Vital signs: Vital Signs Pulse 77 04/28/24 08:36 Respiratory Rate 20 04/28/24 08:36 Blood Pressure 162/91 H 04/28/24 08:36 Pulse Oximetry 99 04/28/24 08:36 Pulse 77 04/28/24 08:36 Respiratory Rate 15 04/28/24 08:47 Respiratory Effort Normal, Non-Labored 04/28/24 08:47 Respiratory Depth Normal 04/28/24 08:47 Respiratory Pattern Normal 04/28/24 08:47 Blood Pressure 162/91 H 04/28/24 08:36 Blood Pressure Position Supine 04/28/24 08:36 Pulse Oximetry 99 04/28/24 08:36 Oxygen Delivery Method Room Air 04/28/24 08:36 Oxygen Flow Rate 0 04/28/24 08:36 Pain Level 4 04/28/24 08:47 Medical Decision Making Emergent evaluation of chest pain. Symptoms have been ongoing for over a week. EKG reviewed and independently interpreted: Sinus 75 normal axis normal inter vals no STEMI. The patient has no known risk factors for coronary disease. I have a low suspicion for ACS. Unlikely to be pneumonia given lack of sick symptoms, unlikely dissection or other aortic pathology. She is undergoing a very stressful time in her home life and is very tearful and upset about that currently. Will give a dose of Xanax to help with this. Will check lab work and reassess. Lab work reviewed, no clinically significant abnormalities. Chest x-ray reviewed and independently interpreted: No focal consolidation, normal heart size, no pulmonary edema or pleural effusion. Given a troponin less than 4 and a patient has been having pain symptoms for a week, I have a low suspicion for cardiac etiology. At this time I feel she is stable for discharge home. She was given a dose of Xanax and that seemed to be most helpful. Recommend following up with her PCP for further evaluation of any ongoing symptoms. Quality:SDOH Health Related Social Needs: No Data to Display PFSH All Active Problems (Updated 04/28/24 @ 10:06 by Lore Dumont MD) Chest pain (Acute) COVID (Acute) Acute lumbar myofascial strain (Acute) Injury of right thumb (Acute) Questionable RCL injury Gamekeeper's thumb of right hand (Acute) Surgical History History of hysterectomy Social History Smoking/Tobacco Use Status: Never Smoking risk assessment performed?: Yes Alcohol Intake: never Drug use: Never Substance use type: does not use Current gender identity: female Do you feel safe at home: Yes Do you feel safe in your relationship?: Yes
[2024-04-28 09:15] LABS: Abs Immature Grans 0.02 10^3/uL (0.0-0.06); Absolute Basophil Count 0.04 10^3/uL (0.0-0.2); Absolute Eosinophil Count 0.44 10^3/uL (0.0-0.7); Absolute Lymphocyte Count 1.84 10^3/uL (1.2-3.4); Absolute Neutrophil Count 4.57 10^3/uL (1.2-6.7); Basophils % 0.5 %; HCT 41.4 % (36.0-46.0); HGB 13.6 g/dL (11.2-15.7); Immature Grans % 0.3 %; Lymphocytes % 25.2 %; MCH 29.2 pg (27.0-33.0); MCHC 32.9 % (32.0-36.0); MCV 89 fL (80-95); MPV 10.1 fL (8.0-11.0); Monocytes % 5.5 %; Neutrophils % 62.5 %; Platelet Count 218 10^3/uL (130-400); RBC 4.66 10^6/uL (3.93-5.22); RDW 14.1 % (11.7-14.6); RDW-SD 45.6 fL; WBC 7.31 10^3/uL (4.4-10.8)
[2024-04-28 09:38] LABS: ALT 22 U/L (14-59); AST 12 U/L (15-37); Albumin 3.5 g/dL (3.4-5.0); Alkaline Phosphatase 97 U/L (46-116); Anion Gap 9.9 mmol/L (3-11); BUN 19 mg/dL (7-18); Bilirubin, Total 0.41 mg/dL (0.2-1.0); CO2 26.1 mmol/L (21.0-32.0); Chloride 105 mmol/L (98-107); Estimated GFR 67.78 (mL/min/1.73m2); Glucose 90 mg/dL (74-106); Magnesium 1.8 mg/dL (1.8-2.4); Potassium 3.9 mmol/L (3.5-5.1); Sodium 141 mmol/L (136-145); Total Protein 7.9 g/dL (6.4-8.2)
--- NOTE | 2024-04-28 09:39 | DI.RAD_ITS ---
Exam(s) XR PORTABLE CHEST AP EXAM: XR PORTABLE CHEST AP CLINICAL HISTORY: chest pain TECHNIQUE: 2D digital imaging was performed of the chest. One image was obtained. An AP view was ob tained. COMPARISON: CT CT CHEST PE CTA from 05/03/[address] CHEST WO from 11/08/2022 FINDINGS: MEDIASTINUM: Normal. HEART: Normal. PULMONARY VASCULATURE: Normal. LUNGS: Clear. PLEURAL SPACE: No pleural effusion or pneumothorax. BONE:Within normal limits for the patient's age. OTHER FINDINGS:Normal. IMPRESSION: No acute pulmonary findings. DATA REPOSITORY: RADIATION DOSE DELIVERED:
[2024-04-28 09:40] LABS: Troponin I < 4 ng/L (<or=51)
== END 2024-04-28 10:30 | disposition home or self-care (01) ==
LOC: ER 11:00
PROVIDERS: Emergency Provider Emergency Medicine
DX: R07.9 Chest pain, unspecified (principal)
CPT/HCPCS: 36415; 80053; 93005; 99285; 71045; 83735; 84484; 85025; 93010; 99284

== ENCOUNTER 2024-11-01 22:05 | Emergency (ER) | payer BC, SELFPAY ==
[2024-11-01 22:23] VITALS: BP 114/57; PULSE 87; RESP 20; TEMP 35.9; O2SAT 99
[2024-11-01] MEDS: Acetaminophen 500 MG TAB 1000 MG PO (22:51)
[2024-11-01] MEDS: Dexamethasone 10 MG/ML VIAL 12 MG IM (22:51)
[2024-11-01] MEDS: Ketorolac 30 MG/ML VIAL IM (22:52)
[2024-11-01 23:07] LABS: Mono Screening Negative (Negative)
--- NOTE | 2024-11-01 23:28 | ED.GENADUL_ITS ---
Discharge Plan Disposition Patient Disposition: Home Condition: Good Discharge Details Clinical Impression: Laryngitis Primary Care Provider: Unknown,Unknown ED Provider: Miller Wells Home Meds and New Rx's Prescriptions: No Action Claritin-D 12 Hour 5-120 mg tablet extended release 12 hr 1 tab PO Q12H duloxetine 20 mg Capsule,Delayed Release(Dr/Ec) 20 mg PO DAILY duloxetine 30 mg capsule,delayed release(DR/EC) 30 mg PO DAILY Patient Comments: TAKE ONE CAPSULE BY MOUTH EVERY DAY Discharge Instructions Instructions: Laryngitis ED Additional Instructions: At this time your strep test is negative, as to is your COVID flu and RSV test. I suspect there is a viral etiology causing your current throat pain. Please take Tylenol and Motrin for pain and swelling. You can take 1000 mg of Tylenol and 800 mg of ibuprofen every 6 hours. These are the maximum doses. Please take 2 tablespoons of honey every 4-6 hours as well to help with sore throat. If you notice any worsening of your symptoms, or any new symptoms such as difficulty swallowing, difficulty controlling your secretions, vomiting, diarrhea, fever, chills, shortness of breath, chest pain, numbness, weakness, or fainting , please return immediately to the emergency department for r eevaluation. Please follow up with your primary care provider as soon as possible for reassessment and reevaluation. As always, it was a pleasure participating in your medical care today. HPI General Date/Time Provider Initiated Documentation: 11/01/24 22:06 . HPI Narrative: 53-year-old female with a past medical history of vasculitis, fibromyalgia, who presents today for sore throat. Patient states that about a week ago she developed upper respiratory like some flulike symptoms. She had a runny nose congestion and mild cough. Symptoms actually somewhat improved and then last night/yesterday she developed notable sore throat. This is progressed over the last 24 hours, with worsening pain with swallowing, difficulty speaking because of pain, and feeling like there is some swelling in the back of her throat. She denies any current vomiting but did have some vomiting 2 to 3 days ago. She admits to notable fatigue. 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 She denies chest pain or shortness of breath. She denies headache or ear pain currently. No other complaints at this time. She also states that she has enlarged tonsils at baseline. Related Data Home Medications ?Medication ?Instructions ?Recorded ?Confirmed duloxetine 20 mg capsule,delayed 20 mg PO DAILY 12/23/20 11/01/24 release loratadine 5 mg-pseudoephedrine ER 1 tab PO Q12H 02/03/21 11/01/24 120 mg tablet,extended release,12hr (Claritin-D 12 Hour) duloxetine 30 mg capsule,delayed 30 mg PO DAILY 04/28/24 11/01/24 release Allergies Allergy/AdvReac Type Severity Reaction Status Date / Time Penicillins Allergy Severe Anaphylaxis Verified 11/01/24 22:28 General Stated Complaint: Sorethroat BRIE: 4 Exam Narrative Exam Narrative: 1.Const: Well-nourished, Well-developed, appearing stated age 2.Eyes: PERRL, no conjunctival injection, and symmetrical lids. 3.ENT: Atraumatic external nose and ears. Moist MM. Neck: Symmetric, trachea midline, No thyromegaly. No evidence of otitis media. No evidence of Ludewig's angina. She has 1 tooth with decay in the posterior left lower molar, but no evidence of periapical abscess or tract. She has tenderness over her tonsils, and exam demonstrates no evidence of peritonsillar abscess. She does have enlarged tonsils, and they look quite floppy in the inferior aspect with slight enlargement. When she just opens her mouth for posterior oropharynx evaluation her tonsils are touching in the inferior aspect, but not the superior component and the uvula is midline, however when she does perform the posterior oropharynx visualization test and says AHHHH she has complete separation of tonsils significantly and her tonsil grading appears to be around a +1. Palpation of her neck reveals no evidence of large mass otherwise. She has no stridor. She is able to control her secretions well. 4.CVS: +S1/S2, Peripheral pulses 2+ and equal in all extremities. Brisk capillary refill in all extremities. 5.RESP: Unlabored respiratory effort. Clear to auscultation bilaterally. No wheezes rales or rhonchi 6.GI: Soft, Nontender/Nondistended, No hepatosplenomegaly. No guarding or rebound. 7.MSK: Normocephalic/Atraumatic, Extremities w/o deformity or ttp No cyanosis or clubbing, Normal movement of all extremities 8.Skin: Warm, Dry. No rashes or lesions. 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 Sensation grossly intact, no focal neurologic deficits. 10.Psych: (AAO) x3. Appropriate mood and affect Course Vital Signs Vital signs: Vital Signs Temperature 35.9 C L 11/01/24 22:23 Pulse 87 11/01/24 22:23 Respiratory Rate 20 11/01/24 22:23 Blood Pressure 114/57 L 11/01/24 22:23 Pulse Oximetry 99 11/01/24 22:23 Temperature 35.9 C L 11/01/24 22:23 Pulse 87 11/01/24 22:23 Respiratory Rate 20 11/01/24 22:23 Blood Pressure 114/57 L 11/01/24 22:23 Pulse Oximetry 99 11/01/24 22:23 Oxygen Delivery Method Room Air 11/01/24 22:23 Oxygen Flow Rate 0 11/01/24 22:23 Pain Level 8 11/01/24 22:23 Lab/Test Results Lab/Test Results: Laboratory Tests Range/Units 11/01/24 22:50 Monoscreen (Negative) Negative POC Strep Test-LORRI(Rapid) Start: 11/01/24 22:33 Freq: .Rapid Strep Test Status: Active Protocol: Document 11/01/24 23:16 (Rec: 11/01/24 23:17 [id number]) Strep test-LORRI(Rapid)-POC POC-Strep test-LORRI (Rapid) Negative POC-Strep test-LORRI (Rapid) Negative Medical Decision Making 53-year-old female with a past medical history of vasculitis, f ibromyalgia, who presents today for sore throat. Patient states that about a week ago she developed upper respiratory like some flulike symptoms. She had a runny nose congestion and mild cough. Symptoms actually somewhat improved and then last night/yesterday she developed notable sore throat. This is progressed over the last 24 hours, with worsening pain with swallowing, difficulty speaking because of pain, and feeling like there is some swelling in the back of her throat. She denies any current vomiting but did have some vomiting 2 to 3 days ago. She admits to notable fatigue. 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 She denies chest pain or shortness of breath. She denies headache or ear pain currently. No other complaints at this time. She also states that she has enlarged tonsils at baseline. Physical exam demonstrates a neck that is symmetric, trachea midline, No thyromegaly. No evidence of otitis media. No evidence of Ludewig's angina. She has 1 tooth with decay in the posterior left lower molar, but no evidence of periapical abscess or tract. She has tenderness over her tonsils, and exam demonstrates no evidence of peritonsillar abscess. She does have enlarged tonsils, and they look quite floppy in the inferior aspect with slight enlargement. When she just opens her mouth for posterior oropharynx evaluation her tonsils are touching in the inferior aspect, but not the superior component and the uvula is midline, however when she does perform the posterior oropharynx visualization test and says AHHHH she has complete separation of tonsils significantly and her tonsil grading appears to be around a +1. Palpation of her neck reveals no evidence of large mass otherwise. She has no stridor. She is able to control her secretions well. No evidence to suggest Ludewig's angina, peritonsillar abscess, peritracheal abscess that she has no fever or tachycardia or signs of sepsis. No halitosis breath to suggest diverticula of the esophagus. No tripoding or hot potato voice to suggest bacterial tracheitis or epiglottitis. Symptoms are concerning for strep throat, viral pharyngitis, viral laryngitis, and mono. Will test for these, give Toradol and Tylenol, monitor closely and reassess. Will also give a dose of Decadron for the mild tonsillar swelling that is present. 12:30 AM After 2 hours of observation patient was reassessed, pain and symptoms have notably improved. She continues to demonstrate no signs of airway compromise, Ludewig's angina, or other airway concerning etiology. Diagnosis at this time is laryngitis, with mild tonsillar inflammation. Strep test, monotest, COVID, flu, and RSV testing are all negative. Will recommend continued NSAID therapy. She did receive Decadron. No indication for significant bacterial or infectious pathology otherwise. No indication for emergent imaging at this time. Discussed red flags for which to return. I have extensively reviewed the treatment plan and discharge instructions with the patient. I have addressed all patient concerns at this time. The patient was made aware of what symptoms to monitor for that would warrant a return to the emergency department. Discussed the plan with the patient, they demonstrate verbal understanding and agreement with our assessment and plan at this time. The documentation in this chart was dictated using [employer] dictation software. Please excuse any dictation errors. Quality:SDOH Health Related Social Needs: No Data to Display PFSH All Active Problems (Updated 11/02/24 @ 00:28 by Miller Wells DO) Laryngitis (Acute) COVID (Acute) Acute lumbar myofascial strain (Acute) Injury of right thumb (Acute) Questionable RCL injury Gamekeeper's thumb of right hand (Acute) Surgical History History of hysterectomy Social History Smoking/Tobacco Use Status: Never Smoking risk assessment performed?: Yes Alcohol Intake: never Drug use: Never Substance use type: does not use Current gender identity: female Do you feel safe at home: Yes Do you feel safe in your relationship?: Yes
[2024-11-01 23:47] LABS: COVID-19 PCR Negative (Negative); Influenza A PCR Negative (Negative); Influenza B PCR Negative (Negative); RSV PCR Negative (Negative)
[2024-11-01 23:48] LABS: Source Nasopharynx
[2024-11-02 00:35] VITALS: BP 110/72; PULSE 88; RESP 16; O2SAT 98
== END 2024-11-02 00:35 | disposition home or self-care (01) ==
PROVIDERS: Emergency Provider Student in an Organized Health Care Education/Training Program
DX: J04.0 Acute laryngitis (principal)
CPT/HCPCS: 87637; 87880; 96372; 99284; 86308; 99283; J1100; J1885

== ENCOUNTER 2024-11-28 15:04 | Outpatient (REF) | payer BC, SELFPAY ==
[2024-11-28 21:17] LABS: Abs Immature Grans 0.01 10^3/uL (0.0-0.06); Absolute Basophil Count 0.04 10^3/uL (0.0-0.2); Absolute Lymphocyte Count 2.26 10^3/uL (1.2-3.4); Absolute Monocyte Count 0.47 10^3/uL (0.1-0.8); Absolute Neutrophil Count 3.35 10^3/uL (1.2-6.7); Basophils % 0.6 %; Eosinophils % 11.5 %; HCT 39.6 % (36.0-46.0); HGB 12.8 g/dL (11.2-15.7); Immature Grans % 0.1 %; Lymphocytes % 32.6 %; MCH 28.8 pg (27.0-33.0); MCHC 32.3 % (32.0-36.0); MCV 89 fL (80-95); MPV 10.5 fL (8.0-11.0); Monocytes % 6.8 %; Neutrophils % 48.4 %; Platelet Count 225 10^3/uL (130-400); RBC 4.44 10^6/uL (3.93-5.22); RDW 13.5 % (11.7-14.6); RDW-SD 43.9 fL; WBC 6.93 10^3/uL (4.4-10.8)
[2024-11-28 21:40] LABS: FREE T4 0.82 ng/dL (0.76-1.46); TSH 2.06 uIU/mL (0.36-3.74)
== END 2024-11-28 15:05 | disposition home or self-care (01) ==
LOC: NCHCN 15:04
PROVIDERS: Visit Provider Family Medicine
DX: J37.0 Chronic laryngitis (principal)
CPT/HCPCS: 84439; 84443; 85025

== ENCOUNTER 2025-03-17 20:19 | Emergency (ER) | payer BC, SELFPAY ==
[2025-03-17] VITALS (25 sets, daily range): BP systolic 134–140; BP diastolic 53–112; PULSE 94–117; RESP 11–23; TEMP 37.6–38.2; O2SAT 90–100
--- NOTE | 2025-03-17 20:30 | RT.EKG_ITS ---
APPROVED REPORT Exam: Resting ECG Reason for Exam: Chest pain, N/V Patient Location: E HR:100 bpm ECG Measurements Heart Rate 100 AXIS MA 193 P 44 QRSd 94 QRS -38 QT 341 T [id number] QTc 440 Conclusion Sinus tachycardia...rate> 99 Probable left atrial enlargement...P >50mS, <-0.10mV V1 Left axis deviation...QRS axis (-30,-90) Low voltage, precordial leads...precordial leads <1.0mV No STEMI
[2025-03-17 20:41] LABS: Abs Immature Grans 0.05 10^3/uL (0.0-0.06); HCT 39.8 % (36.0-46.0); HGB 13.2 g/dL (11.2-15.7); Immature Grans % 0.5 %; MCH 28.4 pg (27.0-33.0); MCHC 33.2 % (32.0-36.0); MCV 86 fL (80-95); MPV 10.6 fL (8.0-11.0); Platelet Count 211 10^3/uL (130-400); RBC 4.64 10^6/uL (3.93-5.22); RDW 13.3 % (11.7-14.6); RDW-SD 41.5 fL; WBC 10.35 10^3/uL (4.4-10.8)
--- NOTE | 2025-03-17 20:45 | DI.CT_ITS ---
Exam(s) CT HEAD WO EXAM: CT HEAD WO CLINICAL HISTORY: Headache, Vomiting. TECHNIQUE: Imaging Protocol: Axial computed tomography images with coronal and sagittal reformatted images were created and reviewed COMPARISON: No exams were available for comparison FINDINGS: Ventricles and Extra axial spaces: Normal in size and morphology for the patient's age. Hemorrhage: None. Cerebral parenchyma: There is no evidence of an acute territorial infarct or mass effect. Midline shift: None. Brainstem/Cerebellum: Normal. Calvarium: Normal. Visualized Paranasal sinuses/Mastoids: There is mild mucosal thickening in several ethmoid air cells bilaterally. The remaining visualized paranasal sinuses and mastoid air cells are clear. Soft Tissues: Unremarkable. IMPRESSION: 1. No acute intracranial process. 2. Mild ethmoid sinus disease. 3. The preliminary [facility] report was reviewed. RADIATION DOSE DELIVERED: 791.97mGy.cm Total DLP DATA REPOSITORY: All CT scans at this facility are submitted to the National Radiology Data Registry (NRDR) Dose Index Registry (DIR) with the [employer] ([employer]). RADIATION OPTIMIZATION: All CT scans at this facility use at least one of these dose optimization techniques: automated exposure control; mA and/or kV adjustment per patient size (includes targeted exams where dose is matched to clinical indication); or iterative reconstruction.
--- NOTE | 2025-03-17 20:51 | DI.RAD_ITS ---
Exam(s) XR CHEST 2V PA LATERAL EXAM: XR CHEST 2V PA LATERAL CLINICAL HISTORY: Chest Pain, N/V TECHNIQUE: 2D digital imaging was performed of the chest. Two images were obtained. PA and lateral views were obtained. COMPARISON: CR XR PORTABLE CHEST AP from 04/28/2024 FINDINGS: MEDIASTINUM: Normal. HEART: Normal. PULMONARY VASCULATURE: Normal. LUNGS: Clear. PLEURAL SPACE: No pleural effusion or pneumothorax. BONE:Within normal limits for the patient's age. OTHER FINDINGS:Normal. IMPRESSION: 1. No acute pulmonary findings. 2. The preliminary [facility] report was reviewed. DATA REPOSITORY: RADIATION DOSE DELIVERED:
--- NOTE | 2025-03-17 20:53 | W.ED.GENAD ---
Discharge Plan Disposition Patient Disposition: Home Condition: Stable Discharge Details Clinical Impression: Sinusitis, Headache, Vomiting Primary Care Provider: Unknown,Unknown ED Provider: Yue Nicolas Home Meds and New Rx's Prescriptions: New doxycycline hyclate 100 mg capsule 100 mg PO BID 7 Days Qty: 14 0RF Rx Instructions: Take one capsule by mouth twice daily x 7 days No Action Claritin-D 12 Hour 5-120 mg tablet extended release 12 hr 1 tab PO Q12H duloxetine 20 mg Capsule,Delayed Release(Dr/Ec) 20 mg PO DAILY duloxetine 30 mg capsule,delayed release(DR/EC) 30 mg PO DAILY Patient Comments: TAKE ONE CAPSULE BY MOUTH EVERY DAY magnesium aspartate HCl PO Discharge Instructions Instructions: Headache, Adult ED, Sinusitis, Adult ED, Nausea and Vomiting, Adult ED Additional Instructions: At this time head CT shows no acute intracranial abnormality no bleeds, no evidence of stroke. However, you do have some diffuse white matter changes and some large ventricles. This could be due to blood pressure or your autoimmune disorder or could be related to your headache and symptoms. The CT also shows that you have some sinusitis. You were given antibiotics here in the department for sinus infection. Please take these as prescribed twice daily with yogurt or probiotic. Please take Tylenol or Ibuprofen with food every 4-6 hours as needed for fever, pain and swelling. Increase oral fluids. Follow up with primary care provider in 3-5 days. Return to ED sooner if any worsening headache, weakness dizziness, confusion, worsening fever, stiff neck, recurrent vomiting associated with headache or concerns. Referrals: Primary Care Provider [Outside] - 5 days Referral Note: ER follow up please call for appointment Discharge Data Discharge Date/Time-TO BE ENTERED AT DEPARTURE: 03/18/25 00:15 HPI General Mode of arrival: ambulatory. Date/Time Provider Initiated Documentation: 03/17/25 20:23. Limitations to Documentation: no limitations. Information obtained by: patient, RN notes reviewed and old records reviewed. HPI Narrative: 54-year-old female presents to the ER with chief complaint migraine which began around 1 PM today associated by brain fog, blurry vision nausea vomiting and chest pain. No vomiting. She reports that she collapsed while having this episode. Manage he Excedrin Migraine prior to arrival: 2 Benadryl tablets around 1630 p.m. She is present hypertensive, tachycardic and febrile temp 38.2. She is ANO x 4. 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 She denies any abdominal pain other than cramping prior to the emesis episodes, denies any diarrhea. She has had a previous episode like this. Related Data Home Medications ?Medication ?Instructions ?Recorded ?Confirmed duloxetine 20 mg capsule,delayed 20 mg PO DAILY 12/23/20 03/17/25 release loratadine 5 mg-pseudoephedrine ER 1 tab PO Q12H 02/03/21 03/17/25 120 mg tablet,extended release,12hr (Claritin-D 12 Hour) duloxetine 30 mg capsule,delayed 30 mg PO DAILY 04/28/24 03/17/25 release doxycycline hyclate 100 mg capsule 100 mg PO BID Sinusitis 7 days #03/17/25 caps magnesium aspartate HCl PO 03/17/25 Previous Rx's ?Medication ?Instructions ?Recorded doxycycline hyclate 100 mg capsule 100 mg PO BID Sinusitis 7 days #14 03/17/25 caps Allergies Allergy/AdvReac Type Severity Reaction Status Date / Time Penicillins Allergy Severe Anaphylaxis Verified 03/17/25 20:30 General Stated Complaint: Nausea/Vomit/Diar BRIE: 3 Review of Systems All systems reviewed & are unremarkable except as noted in HPI and below Constitutional Constitutional: Reports as per HPI and Reports headache(s) Eyes Eyes: Denies loss of vision ENT Ears, Nose, Mouth, and Throat: Reports headache(s) Cardiovascular Cardiovascular: Reports as per HPI and Reports chest pain Gastrointestinal Gastrointestinal: Reports nausea, Reports vomiting and Denies hematemesis Neurologic Neurologic: Denies abnormal speech, Reports headache(s), Denies localized weakness, Denies loss of vision, Reports other visual disturbances and Reports radicular pain Exam Narrative Exam Narrative: Constitutional: Alert and oriented x3. Appears stated age. Normal body habitus. Head: Normocephalic, no trauma. Eyes: Pupils PERRL, Red reflex noted, EOM's intact. Eyelids symmetrical without lesions, discharge, or swelling. ENT: Bilateral TM's WNL, External ear normal to inspection, no mastoid TTP, swelling, or erythema, Nasal turbinates WNL, no nasal discharge. Normal dentition, Posterior pharynx WNL, no exudate. Chest: RRR, Normal S1, S2, distal pulses intact. Resp: Lungs clear to auscultation bilaterally, no wheezes, rales, or rhonchi. Abdomen: Soft, non-distended, Normoactive bowel sounds all 4 quads. Musculoskeletal: Normal gait, Moves all 4 extremities without difficulty. Skin: No suspicious rashes or lesions. Capillary refill less than 2 sec. Neurologic: Cranial nerves II-XII intact. Alert and oriented x 3. Motor: No deficits noted. Sensory: Intact bilaterally all 4 extremities. Hematologic/Lymphatic: No ecchymosis, no lymphadenopathy. Course Vital Signs Vital signs: Vital Signs Temperature 38.2 C H 03/17/25 20:22 Pulse 106 H 03/17/25 20:22 Respiratory Rate 22 03/17/25 20:22 Blood Pressure 139/112 H 03/17/25 20:22 Pulse Oximetry 100 03/17/25 20:22 Temperature 38.2 C H 03/17/25 20:32 Temperature Source Oral 03/17/25 20:32 Pulse 106 H 03/17/25 20:32 Respiratory Rate 22 03/17/25 20:32 Blood Pressure 139/112 H 03/17/25 20:32 Blood Pressure Position Sitting 03/17/25 20:32 Pulse Oximetry 100 03/17/25 20:32 Oxygen Delivery Method Room Air 03/17/25 20:32 Oxygen Flow Rate 0 03/17/25 20:32 Pain Level 4 03/17/25 20:32 Lab/Test Results Lab/Test Results: 03/17/25 20:40 Blood Blood Culture - Pending 03/17/25 20:33 Blood Blood Culture - Pending Laboratory Tests Range/Units 03/17/25 20:38 WBC (4.4-10.8) 10^3/uL 10.35 RBC (3.93-5.22) 10^6/uL 4.64 Hgb (11.2-15.7) g/dL 13.2 Hct (36.0-46.0) % 39.8 MCV (80-95) fL 86 MCH (27.0-33.0) pg 28.4 MCHC (32.0-36.0) % 33.2 RDW (11.7-14.6) % 13.3 Plt Count (130-400) 10^3/uL 211 MPV (8.0-11.0) fL 10.6 Immature Gran % % 0.5 Neutrophils % % 82.3 Lymphocytes % % 10.1 Monocytes % % 4.4 Eosinophils % % 2.3 Basophils % % 0.4 Nucleated RBC % (0.0-0.3) % 0.0 Absolute Neutrophils (1.2-6.7) 10^3/uL 8.51 H Absolute Lymphocytes (1.2-3.4) 10^3/uL 1.05 L Absolute Monocytes (0.1-0.8) 10^3/uL 0.46 Absolute Eosinophils (0.0-0.7) 10^3/uL 0.24 Absolute Basophils (0.0-0.2) 10^3/uL 0.04 VBG Lactate (<or=2.0) mmol/L 1.3 Sodium Cancelled Potassium Cancelled Chloride Cancelled Carbon Dioxide Cancelled Anion Gap Cancelled BUN Cancelled Creatinine Cancelled Est GFR (CKD-EPI 2020) Cancelled Glucose Cancelled Calcium Cancelled Magnesium Cancelled Total Bilirubin Cancelled AST Cancelled ALT Cancelled Alkaline Phosphatase Cancelled Troponin I Cancelled Total Protein Cancelled Albumin Cancelled Medical Decision Making 54-year-old female presents to the ER with chief complaint migraine which began around 1 PM today associated by brain fog, blurry vision nausea vomiting and chest pain. No vomiting. She reports that she collapsed while having this episode. Manage he Excedrin Migraine prior to arrival: 2 Benadryl tablets around 1630 p.m. She is present hypertensive, tachycardic and febrile temp 38.2. She is ANO x 4. 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 She denies any abdominal pain other than cramping prior to the emesis episodes, denies any diarrhea. She has had a previous episode like this. Workup ordered including EKG, Lyme, CBC CMP lactate blood cultures x 2 urinalysis. Liter normal saline, Compazine and 50 mg Toradol. Chest x-ray and head CT. Differential diagnosis includes but not limited to meningitis, tick related illness, migraine, gastroenteritis,CAD, subdural hematoma, viral illness, UTI Patient was given a gram of Tylenol, Solu-Medrol ordered iron 25 mg. Discussed plan of care with patient and family. She would prefer to be discharged home. I did offer her observation MRI in the morning if headache is not resolved. Head CT shows no evidence of acute intracranial abnormality, there is mild age-related atrophy and chronic white matter ischemic changes with compensatory ventricular dilatation. Labs are close demonstrate mild diffuse compensatory enlargement. She also has some chronic sinusitis. And possible acute sinusitis. Take and Lyme panel added onto the labs. Will give doxycycline Patient is allergic to penicillin. Please see remainder of labs below. Blood pressure is improved to 134/53. Heart rate is 99, O2 sat 94% on room air. This text was generated using [email or web address] system, please disregard any oddities of phrase or misspellings. 03/19/2025: 1358: On follow-up informed by ED staff that patient had gram-positive cocci blood culture result as a preliminary result. Called patient no answer Voice mail left. Patient was placed on doxycycline and 1 blood culture shows no growth in 24 hours. This could be a contaminated specimen. Will follow-up with patient. Medical Records Medical records reviewed: Yes I reviewed the patient's medical records. Lab Data Lab results reviewed: Yes I reviewed the patient's lab results. Labs: 03/17/25 21:20 Blood Blood Culture - Pending 03/17/25 20:40 Blood Blood Culture - Pending Laboratory Tests Range/Units 03/17/25 03/17/25 03/17/25 20:38 21:20 21:39 WBC (4.4-10.8) 10^3/uL 10.35 RBC (3.93-5.22) 10^6/uL 4.64 Hgb (11.2-15.7) g/dL 13.2 Hct (36.0-46.0) % 39.8 MCV (80-95) fL 86 MCH (27.0-33.0) pg 28.4 MCHC (32.0-36.0) % 33.2 RDW (11.7-14.6) % 13.3 Plt Count (130-400) 10^3/uL 211 MPV (8.0-11.0) fL 10.6 Immature Gran % % 0.5 Neutrophils % % 82.3 Lymphocytes % % 10.1 Monocytes % % 4.4 Eosinophils % % 2.3 Basophils % % 0.4 Nucleated RBC % (0.0-0.3) % 0.0 Absolute Neutrophils (1.2-6.7) 10^3/uL 8.51 H Absolute Lymphocytes (1.2-3.4) 10^3/uL 1.05 L Absolute Monocytes (0.1-0.8) 10^3/uL 0.46 Absolute Eosinophils (0.0-0.7) 10^3/uL 0.24 Absolute Basophils (0.0-0.2) 10^3/uL 0.04 VBG Lactate (<or=2.0) mmol/L 1.3 Sodium Cancelled 136 Potassium Cancelled 3.6 Chloride Cancelled 102 Carbon Dioxide Cancelled 23.7 Anion Gap Cancelled 10.3 BUN Cancelled 16 Creatinine Cancelled 1.1 H Est GFR (CKD-EPI 2020) Cancelled 60.08 Glucose Cancelled 107 H Calcium Cancelled 9.5 Magnesium Cancelled 1.6 L Total Bilirubin Cancelled 0.6 AST Cancelled 17 ALT Cancelled 24 Alkaline Phosphatase Cancelled 106 Troponin I Cancelled 4 Total Protein Cancelled 8.2 Albumin Cancelled 4.0 Urine Color (Yellow) Yellow Urine Clarity (Clear) Clear Urine pH (5-8) 8.5 H Ur Specific [place] (1.005-1.025) 1.020 Urine Protein (Neg-Trace) mg/dL Negative Urine Ketones (Negative) mg/dL Negative Urine Blood (Negative) Negative Urine Nitrite (Negative) Negative Urine Bilirubin (Negative) Negative Urine Urobilinogen (Up to 0.2) mg/dL 0.2 Ur Leukocyte Esterase (Negative) Negative Urine Glucose (Negative) mg/dL Negative Range/Units 03/17/25 03/17/25 22:37 23:31 WBC (4.4-10.8) 10^3/uL RBC (3.93-5.22) 10^6/uL Hgb (11.2-15.7) g/dL Hct (36.0-46.0) % MCV (80-95) fL MCH (27.0-33.0) pg MCHC (32.0-36.0) % RDW (11.7-14.6) % Plt Count (130-400) 10^3/uL MPV (8.0-11.0) fL Immature Gran % % Neutrophils % % Lymphocytes % % Monocytes % % Eosinophils % % Basophils % % Nucleated RBC % (0.0-0.3) % Absolute Neutrophils (1.2-6.7) 10^3/uL Absolute Lymphocytes (1.2-3.4) 10^3/uL Absolute Monocytes (0.1-0.8) 10^3/uL Absolute Eosinophils (0.0-0.7) 10^3/uL Absolute Basophils (0.0-0.2) 10^3/uL VBG Lactate (<or=2.0) mmol/L Sodium Potassium Chloride Carbon Dioxide Anion Gap BUN Creatinine Est GFR (CKD-EPI 2020) Glucose Calcium Magnesium Total Bilirubin AST ALT Alkaline Phosphatase Troponin I 4 Cancelled Total Protein Albumin Urine Color (Yellow) Urine Clarity (Clear) Urine pH (5-8) Ur Specific [place] (1.005-1.025) Urine Protein (Neg-Trace) mg/dL Urine Ketones (Negative) mg/dL Urine Blood (Negative) Urine Nitrite (Negative) Urine Bilirubin (Negative) Urine Urobilinogen (Up to 0.2) mg/dL Ur Leukocyte Esterase (Negative) Urine Glucose (Negative) mg/dL PFSH All Active Problems (Updated 03/17/25 @ 23:29 by Yue Nicolas NP) Vomiting (Acute) Headache (Acute) Sinusitis (Acute) COVID (Acute) Acute lumbar myofascial strain (Acute) Injury of right thumb (Acute) Questionable RCL injury Gamekeeper's thumb of right hand (Acute) Surgical History History of hysterectomy Social History Smoking/Tobacco Use Status: Never Smoking risk assessment performed?: Yes Alcohol Intake: never Drug use: Never Substance use type: does not use Housing: house Current gender identity: female Do you feel safe at home: Yes Do you feel safe in your relationship?: Yes
[2025-03-17] MEDS: Normal Saline 1,000 ML 1000 ML IV (21:24)
[2025-03-17] MEDS: Prochlorperazine 10 MG/2 ML VIAL 5 MG IVP (21:24)
[2025-03-17] MEDS: Ketorolac 15 MG/ML VIAL IVP (21:24)
[2025-03-17 21:49] LABS: ALT 24 U/L (14-59); AST 17 U/L (15-37); Albumin 4.0 g/dL (3.4-5.0); Alkaline Phosphatase 106 U/L (46-116); Anion Gap 10.3 mmol/L (3-11); BUN 16 mg/dL (7-18); Bilirubin, Total 0.6 mg/dL (0.2-1.0); CO2 23.7 mmol/L (21.0-32.0); Calcium 9.5 mg/dL (8.5-10.1); Chloride 102 mmol/L (98-107); Estimated GFR 60.08 (mL/min/1.73m2); Glucose 107 mg/dL (74-106); Magnesium 1.6 mg/dL (1.8-2.4); Potassium 3.6 mmol/L (3.5-5.1); Sodium 136 mmol/L (136-145); Total Protein 8.2 g/dL (6.4-8.2); Troponin I 4 ng/L (<or=51)
[2025-03-17 22:02] LABS: Glucose Negative (Negative)
--- NOTE | 2025-03-17 22:34 | DI.VRAD_ITS ---
PROCEDURE INFORMATION: Exam: CT Head Without Contrast Exam date and time: 03/17/2025 9:31 PM Age: 54 years old Clinical indication: Pain; Headache not specified; Headache, vomiting TECHNIQUE: Imaging protocol: Computed tomography of the head without contrast. Radiation optimization: All CT scans at this facility use at least one of these dose optimization techniques: automated exposure control; mA and/or kV adjustment per patient size (includes targeted exams where dose is matched to clinical indication); or iterative reconstruction. COMPARISON: No relevant prior studies available. FINDINGS: Brain: There is mild diffuse heterogeneity of the white matter attenuation, consistent with chronic white matter microangiopathic ischemic changes. There is mild diffuse cerebral atrophy present. There is no evidence of intracranial hemorrhage. There is no evidence of acute intracranial injury or other pathologic process. There is no evidence of an acute ischemic event. Cerebral ventricles: The ventricular system demonstrates mild diffuse compensatory enlargement. Paranasal sinuses: Mucoperiosteal thickening consistent with chronic sinusitis. Opacifications of the ethmoid sinuses may represent acute or chronic sinusitis. Mastoid air cells: The mastoid aircells are normal. Orbital cavities: The orbits are normal without evidence of fracture. There is no evidence of retro-bulbar hemorrhage. There is no evidence of globe or lens injury. Bones: The bony cranium shows no evidence of injury or other acute pathologic processes. Soft tissues: The extracranial soft tissues are normal. IMPRESSION: 1. No evidence of an acute intracranial abnormality. 2. There is mild age-related atrophy and chronic white matter ischemic changes, with compensatory ventricular dilation. Impression. Critical. Dictated and Authenticated by: Royal Velasco MD. Orderin Maria Isabel Turner MD
--- NOTE | 2025-03-17 22:38 | DI.VRAD_ITS ---
PROCEDURE INFORMATION: Exam: XR Chest Exam date and time: 03/17/2025 9:56 PM Age: 54 years old Clinical indication: Other: Cp; Chest pain, n/v TECHNIQUE: Imaging protocol: Radiologic exam of the chest. Views: 2 views. COMPARISON: CR XR PORTABLE CHEST AP 28/04/2024 09:33 FINDINGS: Lungs: There is no evidence of focal pulmonary consolidation. The pulmonary vasculature is normal. Pleural spaces: There is no evidence of pneumothorax. There are no pleural effusions present. Heart/Mediastinum: The cardiac silhouette is within normal limits. The mediastinum is normal. Bones/joints: The spine, sternum, ribs, and pectoral girdles show no evidence of acute abnormality Soft tissues: There are no soft tissue masses or calcifications. IMPRESSION: No active cardiopulmonary disease. Dictated and Authenticated by: Royal Velasco MD. Orderin Maria Isabel Turner MD
[2025-03-17] MEDS: ACETAMINOPHEN 1,000 MG/100 ML BAG 400 MG IVPB (23:02)
[2025-03-17 23:03] LABS: Troponin I 4 ng/L (<or=51)
[2025-03-17 23:26] LABS: Lab Add On Test DONE
[2025-03-17] MEDS: methylPREDNISolone SUCC 125 MG VIAL IVP (23:33)
[2025-03-17] MEDS: Normal Saline 500 ML IV (23:33)
[2025-03-18] VITALS: BP 143/51; PULSE 101; PULSE 102; RESP 15; O2SAT 95
[2025-03-18 00:01] VITALS: PULSE 105; RESP 22; O2SAT 95
[2025-03-18] MEDS: Doxycycline Hyclate 100 MG, 2 CAPS/BTL PO (00:07)
[2025-03-18] MEDS: Doxycycline Hyclate 100 MG CAP PO (00:08)
--- NOTE | 2025-03-18 00:13 | NUR.NOTE ---
Ambulated pt around department after receiving 500mL bolus. Pt tolerated ambulation without difficulties. Pt safe for discharge at this time
[2025-03-18 00:14] VITALS: BP 143/51; PULSE 105; RESP 22; TEMP 37.3; O2SAT 95
--- NOTE | 2025-03-19 03:59 | NUR.NOTE ---
Addendum entered by Esperanza Trivedi 03/23/25 07:40: Access chart to determine antibiotic for positive blood culture results to be given to Dr. Mata. Anaerobic bottle positive; gram stain positive cocci in clusters. Aerobic bottle remained no growth in 5 days. Original Note: Nursing Note: Access patient chart for critical lab results. Aerobic Blood Culture Gram positive cocci.
[2025-03-19 10:41] LABS: Lyme Ab w Rflx to Lyme Confirm Negative (Negative)
--- NOTE | 2025-03-20 12:37 | NUR.NOTE ---
Nursing Note: THIS rn IN CHART D/T PT CALLING and having question regaurding care
[2025-03-20 16:15] LABS: B. miyamotoi PCR Negative (Negative); Babesia divergens/MO-1 Negative (Negative); Ehrlichia muris eauclairensis Negative (Negative)
--- NOTE | 2025-03-23 10:19 | W.ED.FU ---
Date of service: 03/23/25 Time of Service: 10:19 Follow Up Plan: This patient had a final blood culture growing Staph epidermidis. She had tachycardia and was febrile on arrival. She was persistently tachycardic at the time of discharge. She had tickborne panel which was negative. She was sent home on a 7-day course of doxycycline 100 mg twice daily. I requested that the patient call back to the emergency department. Patient had no primary care listed in her chart.
== END 2025-03-18 00:15 | disposition home or self-care (01) ==
PROVIDERS: Emergency Provider Registered Nurse Emergency
DX: J01.90 Acute sinusitis, unspecified (principal); R51.9 Headache, unspecified; R11.10 Vomiting, unspecified
CPT/HCPCS: 99284; 99283; 36415; 96374; 96375; 80053; 87040; 87077; 87798; 93005; 96361; 70450; 71046; 81003; 83605; 83735; 84484; 85025; 86618; 87186; 93010; J0131; J0780; J1885; J2919